=== PATIENT | male | born 1990 | race Caucasian/White ===

== ENCOUNTER → 2016-10-15 | Outpatient (CLI) | payer MEDICAID ==
[2016-10-15 09:59] LABS: ANION GAP 12.4 MEQ/L (3-15)
[2016-10-16 17:13] LABS: LAMOTRIGINE 6.7 mcg/mL
== END ==
LOC: LAB 09:26
DX: G40.209 Localization-related (focal) (partial) symptomatic epilepsy and epileptic syndromes with complex partial seizures, not intractable, without status epilepticus (principal)
CPT/HCPCS: 36415; 80048; 80175; 80183